=== PATIENT | female | born 1935 | race Caucasian/White ===

== ENCOUNTER → 2016-08-07 | Outpatient (CLI) | payer MEDICARE ==
[~2016-08-07] MED LIST: ARICEPT10 MG PO; ATIVAN0.5 MG PO; CARDIZEM SR120 MG PO; KLOR-CON M2020 MEQ PO; LASIX40 MG PO; MACROBID100 MG PO; NAMENDA10 MG PO; NEURONTIN100 MG PO; RISPERDAL0.25 MG PO; SYNTHROID25 MCG PO; VESICARE5 MG PO; VITAMIN D250000 UNIT PO; ZOLOFT50 MG PO; ZYLOPRIM300 MG PO
== END | disposition short-term general hospital (02) ==
LOC: CLNEUR 07-24 12:11
DX: G30.9 Alzheimer's disease, unspecified (principal); R26.2 Difficulty in walking, not elsewhere classified; R25.1 Tremor, unspecified

== ENCOUNTER 2016-10-02 07:01 | Emergency (ER) | payer MEDICARE ==
[~2016-10-02 07:01] MED LIST changes: -ATIVAN0.5 MG PO; -KLOR-CON M2020 MEQ PO; -MACROBID100 MG PO; -NEURONTIN100 MG PO; -RISPERDAL0.25 MG PO; -VESICARE5 MG PO
[2016-10-02] MEDS ORDERED: ATIVAN0.5 MG PO (09:13)
[2016-10-02] MEDS ORDERED: VESICARE5 MG PO (09:14)
[2016-10-02] MEDS ORDERED: RISPERDAL0.25 MG PO (09:15)
[2016-10-02] MEDS ORDERED: MACROBID100 MG PO (09:15)
[2016-10-02] MEDS ORDERED: KLOR-CON M2020 MEQ PO (09:16)
[2016-10-02] MEDS ORDERED: NEURONTIN100 MG PO (09:17)
== END 2016-10-02 08:44 | disposition short-term general hospital (02) ==
LOC: ER 07:01
PROC: 0HQNXZZ Repair Left Foot Skin, External Approach (ICD-10-PCS; principal; 2016-10-02)
DX: S91.115A Laceration without foreign body of left lesser toe(s) without damage to nail, initial encounter (principal); F03.90 Unspecified dementia, unspecified severity, without behavioral disturbance, psychotic disturbance, mood disturbance, and anxiety; Z88.6 Allergy status to analgesic agent; Z88.0 Allergy status to penicillin; Z88.2 Allergy status to sulfonamides; X58.XXXA Exposure to other specified factors, initial encounter